=== PATIENT | female | born 1985 | race Caucasian/White ===

== ENCOUNTER → 2021-06-11 14:57 | Outpatient (CLI) | payer OTHER, SELFPAY ==
--- NOTE | 2021-06-11 15:03 | CT_ITS ---
PROCEDURE: CT ABDOMEN PELVIS WO CON CLINICAL INDICATION: UNSPECIFIED ABD PAIN Right flank pain. COMPARISON: No exams were available for comparison TECHNIQUE: Axial images obtained with sagittal and coronal reformats. All CT scans at the facility use one or more dose reduction, viz: automated exposure control, ma/kV adjustment per patient size (including targeted exams where dose is matched to indication, i.e. head), or iterative reconstruction technique. FINDINGS: LOWER THORAX: Left lower lobe granuloma. ABDOMEN & PELVIS: There is moderate right hydroureteronephrosis with a 5 millimeter stone lodged at the right ureterovesicular junction. There are 2 other tiny stones in the right renal collecting system and 1 tiny stone in the left renal collecting system. Cholecystectomy. There is a 3 centimeter right ovarian cyst or follicle. Soft tissues and osseous structures appear unremarkable. IMPRESSION: Moderate right hydroureteronephrosis with a 5 millimeter stone lodged at right ureterovesicular junction. Dictated by: Neida Roman MD 06/11/2021 16:01 Neida Roman MD in [place] 06/11/2021 16:01
== END ==
PROVIDERS: PCP Nurse Practitioner; Visit Provider Nurse Practitioner
DX: R10.9 Unspecified abdominal pain (principal)
CPT/HCPCS: 74176

== ENCOUNTER 2023-12-18 18:45 | Emergency (ER) | payer OTHER, SELFPAY ==
[2023-12-18 18:47] VITALS: BP 128/63; PULSE 89; RESP 18; TEMP 37.1; O2SAT 99; BMI 37.8
--- NOTE | 2023-12-18 18:54 | [facility].EDGENADL ---
Discharge Plan Disposition Patient Disposition: Home, Self-Care Condition: Good Prescriptions Prescriptions: New cephalexin 500 mg capsule 1,000 mg PO BID 7 Days Qty: 28 0RF Referrals Follow up/Referrals: Erin Horne APRN [Primary Care Provider] - See instructions Activity Restrictions/Add. Instructions Additional Instructions/Restrictions: Follow-up with your PCP as scheduled follow-up with your [facility] [facility] as scheduled. Return to ER as needed for any worsening signs or symptoms Clinical Impressions Clinical Impression: Edema, peripheral Urinary tract infectious disease Qualifiers: Urinary tract infection type: site unspecified Hematuria presence: without hematuria Qualified Code(s): N39.0 - Urinary tract infection, site not specified Discharge ED Provider: Eusebio Kinsey General Adult HPI <CARLITO Amos - Last Filed: 12/18/23 20:49> General Chief complaint: Extremity Problem,Nontraumatic Stated complaint: Left lower leg swollen Time Seen by Provider: 12/18/23 18:50 History of Present Illness HPI narrative: Patient presents for left lower extremity edema. Patient has nonpainful swelling to the left lower extremity. Patient has a history of MTHFR gene mutation and MICHAEL-1 and is currently 12 weeks . She has been on Lovenox since week 9. She called her PCP asked her to come to the emergency department for evaluation. Patient [place] chest pain fever chills hemoptysis hematochezia melena nausea vomit diarrhea. Related Data Previous Rx's Medication Instructions Recorded cephalexin 500 mg capsule 1,000 mg (2 x 500 mg) PO BID 7 12/18/23 days #28 caps Allergies Allergy/AdvReac Type Severity Reaction Status Date / Time sulfamethoxazole Allergy Intermediate Verified 12/18/23 19:41 [From Bactrim] trimethoprim [From Bactrim] Allergy Intermediate Verified 12/18/23 19:41 PFSH <CARLITO Amos - Last Filed: 12/18/23 20:49> [facility] Disclaimer: The information contained in this section may have been updated after the patient was seen, as this information can be updated by other users. Social History (Updated 12/18/23 @ 20:49 by CARLITO Amos) Smoking Status: Former smoker alcohol intake: never current occupational status: employed Travel in the last 8 weeks: None <CARLITO Amos - Last Filed: 12/18/23 20:49> ROS Obtained: Yes Systems reviewed as appropriate & no additional complaints except as documented Physical Exam <CARLITO Amos - Last Filed: 12/18/23 20:49> General General appearance: alert and in no apparent distress Respiratory Respiratory exam: Present accessory muscle use Cardiovascular Cardiovascular exam: Present regular rate and normal rhythm Extremities Exam Extremities exam: Present normal inspection, full ROM, normal capillary refill and edema (Patient has +1 nonpitting edema to the left lower extremity); Absent tenderness, joint swelling or calf tenderness Neurological Exam Neurological exam: Present alert and oriented X3 Skin Skin exam: Present warm and dry; Absent normal color (Patient does have a slight sunburn on the anterior castillo of the left lower extremity) Medical Decision Making <CARLITO Amos - Last Filed: 12/18/23 20:49> Medical Records Medical records reviewed: Yes I reviewed the patient's medical records. John Inquiry Pt receiving controlled substance: No Vital Signs: 12/18/23 18:47 12/18/23 19:00 12/18/23 19:31 Temperature 98.7 F Temperature Source Oral Pulse Rate 92 H 79 Pulse Rate [Right] 89 Respiratory Rate 18 18 18 Blood Pressure 128/63 128/72 Blood Pressure [Right Arm] 128/63 Blood Pressure Mean [Right Arm] 84 Blood Pressure Source Blood Pressure Source [Right Arm] Automatic Cuff Blood Pressure Position 02 Sat by Pulse Oximetry 99 100 99 Oxygen Delivery Method Room Air Room Air Room Air 12/18/23 20:15 12/18/23 21:18 Temperature 98 F Temperature Source Oral Pulse Rate 76 75 Pulse Rate [Right] Respiratory Rate 18 18 Blood Pressure 119/74 119/74 Blood Pressure [Right Arm] Blood Pressure Mean [Right Arm] Blood Pressure Source Automatic Cuff Blood Pressure Source [Right Arm] Blood Pressure Position Sitting 02 Sat by Pulse Oximetry 97 Oxygen Delivery Method Room Air Room Air Lab Data Lab results reviewed: Yes I reviewed the patient's lab results. Lab Results 12/18/23 18:51: Urine Color Yellow, Urine Appearance Clear, Urine pH 7.0, Ur Specific [place] 1.010, Urine Protein Negative, Urine Glucose (UA) Negative, Urine Ketones Negative, Urine Blood Negative, Urine Nitrate Negative, Urine Bilirubin Negative, Urine Urobilinogen 0.2, Ur Leukocyte Esterase 1+ A, Urine RBC None, Urine WBC Occasional, Ur Squamous Epith Cells 3-5, Urine Bacteria Trace, Urine Yeast Occasional 12/18/23 20:25: WBC 9.5, RBC 4.28, Hgb 12.9, Hct 39.2, MCV 91.5, MCH 30.2, MCHC 33.1, RDW 14.9, Plt Count 251, MPV 8.7, Neut % (Auto) 71.9, Lymph % (Auto) 22.2, [place] % (Auto) 4.0, Eos % (Auto) 1.7, Baso % (Auto) 0.2, Neut # (Auto) 6.8, Lymph # (Auto) 2.1, [place] # (Auto) 0.4, Eos # (Auto) 0.2, Baso # (Auto) 0.0, Sodium 135 L, Potassium 3.6, Chloride 109 H, Carbon Dioxide 23, Anion Gap 6.6, BUN 5 L, Creatinine 0.60, Estimated Creat Clear 217, Estimated GFR 113, Est GFR ( Amer) 137, Glucose 88, Calcium 8.8, Total Bilirubin 0.7, AST 23, ALT 20, Alkaline Phosphatase 61, Total Protein 6.4, Albumin 3.7, Globulin 2.7, Albumin/Globulin Ratio 1.4, HCG, Quant [id number] H 12/18/23 20:25 12/18/23 20:25 Orders (Tests/Meds): ED MEDICATIONS Discontinued Medications Generic Name Dose Route Start Last Admin Trade Name Freq PRN Reason Stop Dose Admin Cephalexin HCl 1,000 mg 12/18/23 19:56 12/18/23 21:14 Cephalexin 500mg Capsule PO 12/18/23 19:57 1,000 mg ONCE ONE Administration ORDERS Category Date Time Status POCUS Point of Care (ER Only) Stat Exams 12/18/23 19:18 Completed CBC w/Auto Diff [Complete Blood Count Auto Diff] Stat Lab 12/18/23 20:25 Completed CMP [Comprehensive Metabolic Panel] Stat Lab 12/18/23 20:25 Completed HCG,Quantitative Stat Lab 12/18/23 20:25 Completed UA [Urinalysis and Microscopic] Stat Lab 12/18/23 18:51 Completed Urine Culture Stat Micro 12/18/23 18:51 Received Medical Decision Narrative: In summary patient is a 38-year-old female who presents to the emergency department for evaluation of asymptomatic peripheral edema. Patient is hemodynamically stable upon arrival, febrile. Sickle exam is remarkable for +1 nonpitting edema of the left lower extremity without tenderness to palpation palpable cords neurovascular compromise.. Differential diagnosis includes benign dependent edema, preeclampsia, help syndrome etc. Initial workup will be conducted with hematologic labs urinalysis [id number] ultrasound. Initial workup reviewed by me shows that her hematologic labs are nonactionable and her [id number] ultrasound, Dr. Kinsey does not show any evidence of thrombus. Upon repeat evaluation patient not had an interactive discussion regarding findings and concerns.. Given this patient is appropriate for discharge home with follow-up as scheduled with her [facility]FFER and PCP. <Eusebio Kinsey MD - Last Filed: 12/18/23 21:48> Vital Signs: 12/18/23 18:47 12/18/23 19:00 12/18/23 19:31 Temperature 98.7 F Temperature Source Oral Pulse Rate 92 H 79 Pulse Rate [Right] 89 Respiratory Rate 18 18 18 Blood Pressure 128/63 128/72 Blood Pressure [Right Arm] 128/63 Blood Pressure Mean [Right Arm] 84 Blood Pressure Source Blood Pressure Source [Right Arm] Automatic Cuff Blood Pressure Position 02 Sat by Pulse Oximetry 99 100 99 Oxygen Delivery Method Room Air Room Air Room Air 12/18/23 20:15 12/18/23 21:18 Temperature 98 F Temperature Source Oral Pulse Rate 76 75 Pulse Rate [Right] Respiratory Rate 18 18 Blood Pressure 119/74 119/74 Blood Pressure [Right Arm] Blood Pressure Mean [Right Arm] Blood Pressure Source Automatic Cuff Blood Pressure Source [Right Arm] Blood Pressure Position Sitting 02 Sat by Pulse Oximetry 97 Oxygen Delivery Method Room Air Room Air Lab Data Lab Results 12/18/23 18:51: Urine Color Yellow, Urine Appearance Clear, Urine pH 7.0, Ur Specific [place] 1.010, Urine Protein Negative, Urine Glucose (UA) Negative, Urine Ketones Negative, Urine Blood Negative, Urine Nitrate Negative, Urine Bilirubin Negative, Urine Urobilinogen 0.2, Ur Leukocyte Esterase 1+ A, Urine RBC None, Urine WBC Occasional, Ur Squamous Epith Cells 3-5, Urine Bacteria Trace, Urine Yeast Occasional 12/18/23 20:25: WBC 9.5, RBC 4.28, Hgb 12.9, Hct 39.2, MCV 91.5, MCH 30.2, MCHC 33.1, RDW 14.9, Plt Count 251, MPV 8.7, Neut % (Auto) 71.9, Lymph % (Auto) 22.2, [place] % (Auto) 4.0, Eos % (Auto) 1.7, Baso % (Auto) 0.2, Neut # (Auto) 6.8, Lymph # (Auto) 2.1, [place] # (Auto) 0.4, Eos # (Auto) 0.2, Baso # (Auto) 0.0, Sodium 135 L, Potassium 3.6, Chloride 109 H, Carbon Dioxide 23, Anion Gap 6.6, BUN 5 L, Creatinine 0.60, Estimated Creat Clear 217, Estimated GFR 113, Est GFR ( Amer) 137, Glucose 88, Calcium 8.8, Total Bilirubin 0.7, AST 23, ALT 20, Alkaline Phosphatase 61, Total Protein 6.4, Albumin 3.7, Globulin 2.7, Albumin/Globulin Ratio 1.4, HCG, Quant [id number] H Orders (Tests/Meds): ED MEDICATIONS Discontinued Medications Generic Name Dose Route Start Last Admin Trade Name Freq PRN Reason Stop Dose Admin Cephalexin HCl 1,000 mg 12/18/23 19:56 12/18/23 21:14 Cephalexin 500mg Capsule PO 12/18/23 19:57 1,000 mg ONCE ONE Administration ORDERS Category Date Time Status POCUS Point of Care (ER Only) Stat Exams 12/18/23 19:18 Completed CBC w/Auto Diff [Complete Blood Count Auto Diff] Stat Lab 12/18/23 20:25 Completed CMP [Comprehensive Metabolic Panel] Stat Lab 12/18/23 20:25 Completed HCG,Quantitative Stat Lab 12/18/23 20:25 Completed UA [Urinalysis and Microscopic] Stat Lab 12/18/23 18:51 Completed Urine Culture Stat Micro 12/18/23 18:51 Received Medical Decision Narrative: In summary patient is a 38-year-old female who presents to the emergency department for evaluation of asymptomatic peripheral edema. Patient is hemodynamically stable upon arrival, febrile. Sickle exam is remarkable for +1 nonpitting edema of the left lower extremity without tenderness to palpation palpable cords neurovascular compromise.. Differential diagnosis includes benign dependent edema, preeclampsia, help syndrome etc. Initial workup will be conducted with hematologic labs urinalysis [id number] ultrasound. Initial workup reviewed by me shows that her hematologic labs are nonactionable and her [id number] ultrasound, Dr. Kinsey does not show any evidence of thrombus. Upon repeat evaluation patient not had an interactive discussion regarding findings and concerns.. Given this patient is appropriate for discharge home with follow-up as scheduled with her [facility]FFER and PCP. Because patient at baseline without signs or symptoms of clinical decompensation, deemed appropriate for discharge. Results were relayed to patient who voiced understanding and were agreeable to outpatient management and follow up. I discussed my clinical impression with patient and answered all questions. At this time, the evidence for any other entities in the differential is insufficient to warrant any further testing or ED observation. This was explained as well. Advisory was given that persistent or worsening symptoms require further evaluation. I confirmed the understanding of this discussion. I was consulted by the NESS, and we discussed the complexity of the problems being addressed. I approved the treatment and management plan for this patient?s care in the Emergency Department, thus performing a substantive portion of the medical decision making. Eusebio Kinsey MD Procedures <Eusebio Kinsey MD - Last Filed: 12/18/23 21:48> Limited Ultrasound Indication:: Limited DVT ultrasound Indication: Limited compression ultrasonography of the left lower extremity was performed to evaluate for non-compressibility of the deep veins in the patient. The ultrasound was performed with the following indications, as noted in the H&P: , left lower extremity swelling ankle and beyond Identified structures: Left femoral vein, popliteal vein were examined. Findings: Lower extremity: Left CFV: Not performed Left FV good compressibility Left Popliteal vein: Good compressibility Impression: Normal left lower extremity DVT ultrasound Images were saved to permanent archive The study was technically adequate CPT: 47435-26-ES [id number] 97149-64 (complete bilateral study) This study was performed by me, and I personally interpreted all images/videos. Based on my clinical judgement, these images were adequate and did not necessitate further imaging. Critical Care <CARLITO Aoms - Last Filed: 12/18/23 20:49> Critical Care Time Critical Care Time: No
[2023-12-18 19:00] VITALS: BP 128/63; PULSE 92; RESP 18; O2SAT 100
[2023-12-18 19:23] LABS: Microscopic, Urine URINE MICROSCOPIC (MICROSCOPIC)
[2023-12-18 19:30] LABS: Appearance,Urine CLEAR (Clear); Bilirubin,Urine Negative (Negative); Blood, Urine Negative (Negative); Color,Urine YELLOW (Yellow); Glucose,Urine (UA) Negative (Negative); Ketones,Urine Negative (Negative); Leukocyte Esterase,Urine 1+ (Negative); Nitrate,Urine Negative (Negative); Protein,Urine Negative (Negative); Urobilinogen,Urine 0.2 EU/dl (0.2)
[2023-12-18 19:31] VITALS: BP 128/72; PULSE 79; RESP 18; O2SAT 99
[2023-12-18 19:49] LABS: Bacteria,Urine Trace /lpf; WBC,Urine Occasional #/hpf (0-3); Yeast,Urine Occasional /lpf
[2023-12-18 20:15] VITALS: BP 119/74; PULSE 76; RESP 18; O2SAT 97
[2023-12-18 20:31] LABS: Basophils % 0.2 % (0.1-2.0); Eosinophils # 0.2 K/mm3 (0.0-0.4); Eosinophils % 1.7 % (0.1-12.0); Hematocrit 39.2 % (37.0-47.0); Hemoglobin 12.9 g/dL (12.2-16.2); Lymphocytes # 2.1 K/mm3 (0.7-4.5); Lymphocytes % 22.2 % (10-50); Mean Corpuscular HGB Conc 33.1 g/dL (31.8-35.4); Mean Corpuscular Hemoglobin 30.2 pg (27.0-31.2); Mean Corpuscular Volume 91.5 fl (81-99); Mean Platelet Volume 8.7 fl (7.4-10.4); Monocytes # 0.4 K/mm3 (0.1-1.0); Neutrophils # 6.8 K/mm3 (1.8-7.8); Neutrophils % 71.9 % (37.0-80.0); Platelet Count 251 K/mm3 (142-424); Red Blood Count 4.28 M/mm3 (4.20-5.40); Red Cell Distribution Width 14.9 % (11.5-17.5); White Blood Count 9.5 K/mm3 (4.8-10.8)
[2023-12-18 20:35] LABS: Chloride 109 mmol/L (98-107); Potassium 3.6 mmoL/L (3.5-5.1); Sodium 135 mmol/L (136-145)
[2023-12-18 20:38] LABS: Alanine Aminotransferase 20 U/L (12-78); Albumin Level 3.7 g/dl (3.5-5.0); Albumin/Globulin Ratio 1.4 (1.1-1.8); Alkaline Phosphatase 61 U/L (38-126); Anion Gap 6.6 mEq/L (5-15); Aspartate Amino Transferase 23 U/L (14-36); Bilirubin,Total 0.7 mg/dl (0.2-1.3); Blood Urea Nitrogen 5 mg/dl (7-17); Calcium 8.8 mg/dl (8.4-10.2); Carbon Dioxide 23 mmol/L (22.0-30.0); Creatinine Clearance Estimated 217 mL/min (50-200); Estimated Glomerular Filt Rate 113 ml/min (>60); GFR (African American) 137 ML/MIN (>60); Globulin 2.7 g/dL (1.3-3.2); Glucose 88 mg/dl (74-100); Total Protein,Serum 6.4 g/dl (6.3-8.2)
[2023-12-18] MEDS: cephALEXin 500MG CAPSULE 1000 MG PO (21:14)
[2023-12-18 21:18] VITALS: BP 119/74; PULSE 75; RESP 18; TEMP 36.6; O2SAT 98
[2023-12-18 21:23] LABS: HCG,Quantitative 81267 mIU/ml (0-5.42)
== END 2023-12-18 21:23 | disposition home or self-care (01) ==
PROVIDERS: Physician Assistant; Emergency Provider Emergency Medicine; PCP Nurse Practitioner
DX: O26.891 Other specified pregnancy related conditions, first trimester (principal); R60.0 Localized edema; O23.41 Unspecified infection of urinary tract in pregnancy, first trimester; B96.89 Other specified bacterial agents as the cause of diseases classified elsewhere; E72.12 Methylenetetrahydrofolate reductase deficiency; Z3A.12 12 weeks gestation of pregnancy
CPT/HCPCS: 80053; 81001; 84702; 85025; 87086; 99284